=== PATIENT | female | born 1975 | race Caucasian/White ===

== ENCOUNTER 2017-02-27 07:46 | Emergency (ER) | payer OTHER ==
[2017-02-27 07:58] VITALS: BP 144/93
[2017-02-27] MEDS ORDERED: FLEXERIL PO ONE (10:27)
[2017-02-27] MEDS ORDERED: NORCO 5/325 PO ONE (10:27)
[2017-02-27] MEDS ORDERED: TORADOL IM ONE (10:27)
[2017-02-27] MEDS ORDERED: TORADOL ONE (11:01)
--- NOTE | 2017-02-27 11:29 | XRay Report ---
LUMBOSACRAL SPINE, 3 VIEWS: History: Back pain Findings: The vertebral bodies, disk spaces and posterior elements are intact. No compression deformity or malalignment. The SI joints are symmetric and unremarkable. Impression: 1. No evidence for acute injury to the lumbar spine.
--- NOTE | 2017-02-27 11:29 | XRay Report ---
ROUTINE CHEST, TWO VIEWS: HISTORY: chest pain. The trachea, heart, mediastinal contour, lung doss and bony thorax are unremarkable. IMPRESSION: Unremarkable chest x-ray.
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
== END 2017-02-27 11:41 | disposition home or self-care (01) ==
LOC: ED 07:46
DX: M54.2 Cervicalgia (principal); R07.89 Other chest pain; M54.5 Low back pain; V87.7XXA Person injured in collision between other specified motor vehicles (traffic), initial encounter; Y93.89 Activity, other specified; Y99.9 Unspecified external cause status; Y92.410 Unspecified street and highway as the place of occurrence of the external cause
CPT/HCPCS: 71020; 72040; 72100; 81025; 96372; 99283; J1885

== ENCOUNTER 2018-01-18 15:44 | Outpatient (CLI) | payer OTHER ==
--- NOTE | 2018-01-18 17:47 | Cat Scan Report ---
FINAL REPORT PROCEDURE: CT LOWER EXTREMITY LT WO CON TECHNIQUE: Computerized axial tomography of the LEFT ankle was performed without contrast. HISTORY: History of failed arthroplasty of ankle COMPARISON: No prior studies are available for comparison. FINDINGS: There is a partially threaded screw extending from posterior medial cortex of the tibia, traversing the tibiotalar joint, extending into the talus. There is lucency through screw at the level of the talus, suggesting a fracture of the hardware. There is a thin rim of lucency surrounding the screw in the superior talus. There is a 2nd screw extending from the posterior lateral cortex of the tibia into the talus, which appears intact. There is a thin rim of lucency surrounding the distal aspect of the screw in the talus. There is dystrophic type calcification of the interosseous ligament. There is joint space narrowing and irregularity with subarticular sclerosis along the tibiotalar joint, with no evidence of bony fusion. No acute fracture is seen. There is subcutaneous edema along the medial and lateral aspect of the ankle. IMPRESSION: Postsurgical changes as described above.
== END 2018-01-18 15:45 | disposition home or self-care (01) ==
LOC: CT 15:44
PROVIDERS: ATTEND Orthopaedic Surgery
DX: Z98.890 Other specified postprocedural states (principal)